=== PATIENT | female | born 1995 | race Caucasian/White ===

== ENCOUNTER 2017-07-28 14:52 | Emergency (ER) ==
[2017-07-28 15:00] VITALS: BP 119/71; TEMP 98.8; BMI 19.0
[2017-07-28] MEDS ORDERED: ZOFRAN 4 MG/2 ML IM STA (15:45)
--- NOTE | 2017-07-28 15:45 | ED.PDOC ---
General ED Provider: Dr. MOHINI MARTNIEZ Chief Complaint: Abdominal Pain Stated Complaint: present with RUQ pain with nausea. has had general abdominal pain for the past 3 months. not related with food no constipation or diarrhea Time Seen by Physician: 15:30 Mode of Arrival: Walk-In Information Source: Patient Exam Limitations: No limitations Nursing and Triage Documentation Reviewed and Agree: Yes Reviewed sepsis parameters & appropriate labs ordered?: Yes System Inflammatory Response Syndrome: Not Applicable Sepsis Protocol: For patient's 13 years and over: Temp is 96.8 and below OR 101 and greater Pulse >90 BPM Resp >20/minute Acutely Altered Mental Status Are patient's symptoms suggestive of a new infection, such as: -Pneumonia -Skin, Soft Tissue -Endocarditis -UTI -Bone, Joint Infection -Implantable Device -Acute Abdominal Infection -Wound Infection -Meningitis -Blood Stream Catheter Infection -Unknown System Inflammatory Response Syndrome: Not Applicable GI Complaint Exam - Abdominal Pain Complaint/Exam Onset: Gradual Duration: 1 days Symptoms Are: Still present Timing: Constant Initial Severity: Moderate Current Severity: Moderate Location of Pain: RUQ Character: Reports: Sharp Aggravating: Reports: None Alleviating: Reports: None Associated Signs and Symptoms: Reports: Nausea Related History: Reports: Similar episode (has had generalized abdominal discomfort for the past 3 months no previous evaluation ) : 1 Para: 0 Hx Total # of Abortions (Spontaneous & Elective): 1 (spontaneous ) AAA Risk Factors: Reports: None Cardiac Risk Factors: Reports: None Ectopic Risk Factors: Reports: None Ovarian Torsion Risk Factors: Reports: None Surgical Obstruction Risk Factors: Reports: None Related Surgical History: Reports: None Differential Diagnoses: Other Review of Systems - Review Of Systems Constitutional: Reports: Loss of appetite, Other (not healthy eating habit ) Eyes: Reports: No symptoms Ears, Nose, Mouth, Throat: Reports: No symptoms Respiratory: Reports: No symptoms Cardiac: Reports: No symptoms GI: Reports: Abdominal pain, Nausea, Poor appetite, Poor fluid intake : Reports: No symptoms Musculoskeletal: Reports: No symptoms Skin: Reports: No symptoms Neurological: Reports: No symptoms Endocrine: Reports: No symptoms Hematologic/Lymphatic: Reports: No symptoms All Other Systems: Reviewed and Negative Past Medical History - Past Medical History Previously Healthy: Yes Endocrine: Reports: None Cardiovascular: Reports: None Respiratory: Reports: None Hematological: Reports: None Gastrointestinal: Reports: None Genitourinary: Reports: None Neuro/Psych: Reports: Anxiety (taking prozac and buspirone), Depression Musculoskeletal: Reports: None Cancer: Reports: None Last Menstrual Period: july 23--sl spotting - Surgical History General Surgical History: Reports: None - Family History Family History: Reports: None - Social History Smoking Status: Never smoker Hx Substance Use: No Alcohol Screening: Occasionally - Immunizations Tetanus Shot up to Date: Yes Physical Exam - Physical Exam Appearance: Well-appearing, Thin (not eating regularly ) Pain Distress: Mild Eyes: MANISH, EOMI, Conjunctiva clear ENT: Ears normal, Nose normal, Oropharynx normal Neck: Supple Respiratory: Airway patent, Breath sounds clear, Breath sounds equal, Respirations nonlabored Cardiovascular: RRR, Pulses normal, No rub, No murmur GI/: Soft, No masses, Bowel sounds normal, No Organomegaly, Tender Musculoskeletal: Normal strength, ROM intact, No edema, No calf tenderness Skin: Warm, Dry, Normal color Neurological: Sensation intact Psychiatric: Affect appropriate (she states that she has seen her PCP for prozac and buspirone ), Mood appropriate Interpretation - Radiology Interpretation Radiology Interpretation By: Radiologist Radiology Results: No acute changes Critical Care Note - Critical Care Note Total Time (mins): 0 Course - Course Orders, Labs, Meds: Lab Review 07/28/17 07/28/17 15:23 15:25 Serum , Qual Negative Urine Color Yellow Urine Clarity Clear Urine pH 7.5 Ur Specific [place] 1.020 Urine Protein Negative Urine Glucose (UA) Negative Urine Ketones Negative Urine Blood Trace-intact Urine Nitrite Negative Urine Bilirubin Negative Urine Urobilinogen 0.2 Ur Leukocyte Esterase Negative Urine Microscopic RBC 0-2 Ur Squamous Epith Cells Not present Orders Category Date Time Status NPO REMINDER: IMAGING ONCE CARE 07/28/17 15:12 Completed AMYLASE Stat LAB 07/28/17 15:23 Received CBC W/ AUTO DIFF Stat LAB 07/28/17 15:23 Received COMPREHENSIVE METABOLIC PANEL Stat LAB 07/28/17 15:23 Received LIPASE Stat LAB 07/28/17 15:23 Received SERUM Stat LAB 07/28/17 15:23 Completed URINALYSIS C & S IF INDICATED Stat LAB 07/28/17 15:25 Completed ULTRASOUND ABDOMEN, RT. UPPER QUAD [U/S ABDOMEN, RT. RADS 07/28/17 15:11 Ordered UPPER QUAD] Stat Vital Signs: Temp Pulse Resp BP Pulse Ox 05/30/18 14:53 98.8 F 61 20 119/71 99 Departure - Departure Time of Disposition: 17:08 Disposition: HOME SELF-CARE Discharge Problem: Abdominal pain Instructions: Abdominal Pain (ED) Condition: Good Pt referred to PMD for follow-up: Yes IPMP verified?: No Additional Instructions: Please call your Family Physician as soon as possible to schedule a follow-up appointment. Allergies/Adverse Reactions: Allergies No Known Allergies Allergy (Unverified 07/28/17 15:01) Home Medications: Ambulatory Orders Buspirone HCl 5 mg PO BID 07/28/17 Fluoxetine HCl [Prozac] 10 mg PO DAILY 07/28/17
--- NOTE | 2017-07-28 16:14 | US ---
EXAM: Abdominal ultrasound limited HISTORY: Abdominal pain COMPARISON: None TECHNIQUE: Sonographic and limited Doppler evaluation of the right upper quadrant was performed. FINDINGS: The liver is normal in echogenicity and measures 9.8 cm. The portal vein is patent. The gallbladder is mildly contracted with no visualized stone. The gallbladder wall measures 0.2 cm in t hickness. Common bile duct is unremarkable and measures 0.4 cm in diameter. The pancreas is unremark able in appearance. The right kidney measures 8.5 x 3.2 x 3.3 cm with cortical thickness of 0.6 cm. IMPRESSION: No acute abnormality to account for abdominal pain.
== END 2017-07-28 17:11 | disposition home or self-care (01) ==
LOC: ED 14:52
DX: R10.11 Right upper quadrant pain (principal); R11.0 Nausea
CPT/HCPCS: 36415; 80053; 81001; 82150; 83690; 84703; 85025; 96372; 99283

== ENCOUNTER 2017-08-30 21:22 | Emergency (ER) | payer OTHER ==
[2017-08-30 21:22] VITALS: BMI 19.0
[2017-08-30 21:37] VITALS: BP 128/90; TEMP 98.8
[2017-08-30] MEDS ORDERED: LACTATED RINGERS 1,000 ML IV STA (22:07)
--- NOTE | 2017-08-30 22:10 | ED.PDOC ---
General ED Provider: Dr. BRIGIDA ANDINO Chief Complaint: Abdominal Pain Stated Complaint: Patient has had abdominal pain off and on for severel months. She was seen a month ago and had an US of abdomen that was negative. She was told to start eating better since she has lost some weight and may have an eating disorder. She states she has been eating better. Time Seen by Physician: 21:50 Mode of Arrival: Walk-In Information Source: Patient Nursing and Triage Documentation Reviewed and Agree: Yes Does patient meet sepsis criteria?: No System Inflammatory Response Syndrome: Not Applicable Sepsis Protocol: For patient's 13 years and over: Temp is 96.8 and below OR 101 and greater Pulse >90 BPM Resp >20/minute Acutely Altered Mental Status Are patient's symptoms suggestive of a new infection, such as: -Pneumonia -Skin, Soft Tissue -Endocarditis -UTI -Bone, Joint Infection -Implantable Device -Acute Abdominal Infection -Wound Infection -Meningitis -Blood Stream Catheter Infection -Unknown GI Complaint Exam - Abdominal Pain Complaint/Exam Onset: Gradual Duration: few weeks worse the last 3 days Symptoms Are: Still present Timing: Constant Initial Severity: Severe Current Severity: Severe Location of Pain: RUQ Character: Reports: Aching, Throbbing Aggravating: Reports: None Alleviating: Reports: Position (putting pressure on it ) Associated Signs and Symptoms: Denies: Diaphoresis, Fever, Cough, Chest pain, Dizziness, Back pain, Constipation, Blood in stool, Dysuria, Urinary frequency, Decreased urine output, Decreased appetite, Vaginal bleeding, Vaginal discharge , Nausea, Vomiting, Diarrhea, Sore throat, Decreased activity AAA Risk Factors: Reports: None Cardiac Risk Factors: Reports: None Ectopic Risk Factors: Reports: None Ovarian Torsion Risk Factors: Reports: None Surgical Obstruction Risk Factors: Reports: None Related Surgical History: Reports: None Patient Rh Status: Unknown Abdominal Findings: Present: Other (tenderness to palpation on the right upper quadrant. ) Differential Diagnoses: Appendicitis, Bowel Obstruction, Gastroenteritis, Irritable Bowel Syndrome, Renal Colic, Ureteral Stone, UTI, Review of Systems - Review Of Systems Constitutional: Reports: No symptoms Eyes: Reports: No symptoms Ears, Nose, Mouth, Throat: Reports: No symptoms Respiratory: Reports: No symptoms Cardiac: Reports: No symptoms GI: Reports: Abdominal pain. Denies: Nausea, Poor appetite, Poor fluid intake, Vomiting : Reports: No symptoms Musculoskeletal: Reports: No symptoms Skin: Reports: No symptoms Neurological: Reports: Anxiety, Depressed, Emotional problems Endocrine: Reports: No symptoms Hematologic/Lymphatic: Reports: No symptoms All Other Systems: Reviewed and Negative Past Medical History - Past Medical History Previously Healthy: Yes Endocrine: Reports: None Cardiovascular: Reports: None Respiratory: Reports: None Hematological: Reports: None Gastrointestinal: Reports: None Genitourinary: Reports: None Neuro/Psych: Reports: Anxiety (taking prozac and buspirone), Depression Musculoskeletal: Reports: None Cancer: Reports: None Last Menstrual Period: 08/23/17 Other Pertinent Past Medical History: Mischarriage - Surgical History General Surgical History: Reports: None - Family History Family History: Reports: None - Social History Smoking Status: Never smoker Hx Substance Use: No Alcohol Screening: Occasionally - Immunizations Tetanus Shot up to Date: Yes Physical Exam - Physical Exam Appearance: Ill-appearing, Thin Pain Distress: Severe Eyes: MANISH, EOMI, Conjunctiva clear Neck: Supple Respiratory: Airway patent, Breath sounds clear, Breath sounds equal, Respirations nonlabored Cardiovascular: RRR, Pulses normal, No rub, No murmur GI/: Soft, Tender Musculoskeletal: Normal strength Skin: Warm Neurological: Alert, Oriented Psychiatric: Anxious Interpretation - Radiology Interpretation Radiology Interpretation By: Radiologist Radiology Results: Negative Exam Interpreted: CT Scan (Abdomen and pelvis. ) Re-Evaluation - Re-Evaluation Time of Re-Evaluation: 00:01 Status: Improved Pain Level: 03/10 Additional Comments: Admitted she has been having problems with the boyfriend. Critical Care Note - Critical Care Note Total Time (mins): 0 Course - Course Hematology/Chemistry: 08/30/17 22:12 08/30/17 22:12 Orders, Labs, Meds: Lab Review 08/30/17 08/30/17 08/30/17 21:39 21:39 22:12 WBC 9.20 RBC 4.23 Hgb 13.2 Hct 36.8 L MCV 87.0 MCH 31.2 H MCHC 35.9 H RDW Coeff of Isis 12.0 Plt Count 257 Immature Gran % (Auto) 0.2 Neut % (Auto) 56.6 Lymph % (Auto) 31.0 [place] % (Auto) 6.5 Eos % (Auto) 5.2 Baso % (Auto) 0.5 Immature Gran # (Auto) 0.0 Neut # (Auto) 5.2 Lymph # (Auto) 2.9 [place] # (Auto) 0.6 Eos # (Auto) 0.5 Baso # (Auto) 0.1 Sodium Potassium Chloride Carbon Dioxide Anion Gap BUN Creatinine Estimated GFR (MDRD) BUN/Creatinine Ratio Glucose Calcium Total Bilirubin AST ALT Alkaline Phosphatase Total Protein Albumin Globulin Albumin/Globulin Ratio Amylase Lipase Urine Color Yellow Urine Clarity Clear Urine pH 5.5 Ur Specific [place] >=1.030 Urine Protein Negative Urine Glucose (UA) Negative Urine Ketones Negative Urine Blood Trace-lysed Urine Nitrite Negative Urine Bilirubin Negative Urine Urobilinogen 0.2 Ur Leukocyte Esterase Negative Urine Microscopic RBC 2-5 Urine Microscopic WBC 0-2 Ur Squamous Epith Cells 0-2 Urine Bacteria 1+ Urine Mucus 1+ Urine Test Negative 08/30/17 22:12 WBC RBC Hgb Hct MCV MCH MCHC RDW Coeff of Isis Plt Count Immature Gran % (Auto) Neut % (Auto) Lymph % (Auto) [place] % (Auto) Eos % (Auto) Baso % (Auto) Immature Gran # (Auto) Neut # (Auto) Lymph # (Auto) [place] # (Auto) Eos # (Auto) Baso # (Auto) Sodium 138 Potassium 3.5 Chloride 108 H Carbon Dioxide 22 Anion Gap 11.5 BUN 10 Creatinine 0.74 Estimated GFR (MDRD) 100.00 BUN/Creatinine Ratio 13.51 Glucose 90 Calcium 9.2 Total Bilirubin 0.7 AST 17 ALT 13 Alkaline Phosphatase 60 Total Protein 7.3 Albumin 3.9 Globulin 3.4 Albumin/Globulin Ratio 1.15 Amylase 78 Lipase 38 Urine Color Urine Clarity Urine pH Ur Specific [place] Urine Protein Urine Glucose (UA) Urine Ketones Urine Blood Urine Nitrite Urine Bilirubin Urine Urobilinogen Ur Leukocyte Esterase Urine Microscopic RBC Urine Microscopic WBC Ur Squamous Epith Cells Urine Bacteria Urine Mucus Urine Test Orders Category Date Time Status NPO REMINDER: IMAGING ONCE CARE 08/30/17 22:15 Completed AMYLASE Stat LAB 08/30/17 22:12 Completed CBC W/ AUTO DIFF Stat LAB 08/30/17 22:12 Completed COMPREHENSIVE METABOLIC PANEL Stat LAB 08/30/17 22:12 Completed LIPASE Stat LAB 08/30/17 22:12 Completed URINALYSIS C & S IF INDICATED Stat LAB 08/30/17 21:39 Completed URINE CULTURE Stat LAB 08/30/17 21:39 Received URINE Stat LAB 08/30/17 21:39 Completed Dicyclomine Inj [Bentyl] MEDS 08/30/17 22:15 Discontinued 20 mg IM ONCE STA Ringers Lactated Solution [Lactated Ringers] 1,000 ml MEDS 08/30/17 22:[address] ABDOMEN/PELVIS W CONTRAST Stat RADS 08/30/17 22:14 Completed Medications Discontinued Medications Generic Name Dose Route Start Last Admin Trade Name Freq PRN Reason Stop Dose Admin Dicyclomine HCl 20 mg 08/30/17 22:15 08/30/17 22:23 Bentyl IM 08/30/17 22:16 20 mg ONCE STA Administration Lactated Ringer's 1,000 mls @ 1,000 mls/hr 08/30/17 22:07 08/30/17 22:17 Lactated Ringers IV 08/30/17 23:06 1,000 mls/hr BOLUS STA Administration Vital Signs: Temp Pulse Resp BP Pulse Ox 08/30/17 21:31 98.8 F 72 20 128/90 97 Departure - Departure Time of Disposition: 00:16 Disposition: HOME SELF-CARE Discharge Problem: Abdominal pain Instructions: Chronic Abdominal Pain (ED) Condition: Stable Pt referred to PMD for follow-up: Yes IPMP verified?: No Additional Instructions: Take medications as prescribed Follow up with PCP in 3-5 days to have GI referral. Push fluids Continue to eat Three meals a day. Prescriptions: Dicyclomine HCl [Bentyl] 10 mg PO TID PRN #20 capsule PRN Reason: Abdominal Pain Allergies/Adverse Reactions: Allergies No Known Allergies Allergy (Verified 08/30/17 21:37) Home Medications: Ambulatory Orders Dicyclomine HCl [Bentyl] 10 mg PO TID PRN #20 capsule 08/31/17 Disposition Discussed With: Patient
[2017-08-30] MEDS ORDERED: BENTYL IM STA (22:15)
--- NOTE | 2017-08-30 23:51 | CT ---
EXAM: CT scan abdomen pelvis with contrast HISTORY: Right upper quadrant pain COMPARISON: None. FINDINGS: Contiguous axial images were obtained through the abdomen pelvis following uneventful admi nistration intravenous contrast utilizing 3-mm collimation. Sagittal and coronal reconstructions wer e imaged and reviewed.. The visualized lung bases are clear. Gallbladder is fluid filled without ch olelithiasis. The liver, pancreas, spleen and adrenal glands have normal enhanced CT appearance. Th e kidneys excrete contrast in a normal fashion bilaterally... The abdominal aorta is normal in cours e and caliber. There is partial visualization of the appendix which appears normal. Free fluid is s een in the dependent pelvis. The bladder is unremarkable.. Bone windows reveals no evidence of lyti c or blastic lesions. IMPRESSION: Normal-appearing visceral organs. Free fluid is seen in the dependent pelvis. No acute intra-abdominal findings.1
== END 2017-08-31 00:22 | disposition home or self-care (01) ==
LOC: ED 21:22
DX: R10.11 Right upper quadrant pain (principal); G89.29 Other chronic pain
CPT/HCPCS: 36415; 80053; 81001; 81025; 82150; 83690; 85025; 87086; 96360; 96372; 99284

== ENCOUNTER 2017-10-11 12:44 | Emergency (ER) | payer OTHER ==
[2017-10-11 12:52] VITALS: BP 113/80; TEMP 98.7; BMI 19.1
--- NOTE | 2017-10-11 13:23 | ED.PDOC ---
General ED Provider: Dr. YESIKA DE Chief Complaint: Rash Stated Complaint: skin lesion-rt mandibular region with diffuse swelling and tenderness. 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 Time Seen by Physician: 12:55 Mode of Arrival: Walk-In Information Source: Patient Nursing and Triage Documentation Reviewed and Agree: Yes Does patient meet sepsis criteria?: No System Inflammatory Response Syndrome: Not Applicable Sepsis Protocol: For patient's 13 years and over: Temp is 96.8 and below OR 101 and greater Pulse >90 BPM Resp >20/minute Acutely Altered Mental Status Are patient's symptoms suggestive of a new infection, such as: -Pneumonia -Skin, Soft Tissue -Endocarditis -UTI -Bone, Joint Infection -Implantable Device -Acute Abdominal Infection -Wound Infection -Meningitis -Blood Stream Catheter Infection -Unknown Review of Systems - Review Of Systems Constitutional: Reports: No symptoms Eyes: Reports: No symptoms Ears, Nose, Mouth, Throat: Reports: No symptoms, Mouth pain, Throat pain ( anterolat) Respiratory: Reports: No symptoms Cardiac: Reports: No symptoms GI: Reports: No symptoms : Reports: No symptoms Musculoskeletal: Reports: No symptoms Skin: Reports: Change in color (Rt Mandibular erythrema) Endocrine: Reports: No symptoms Hematologic/Lymphatic: Reports: No symptoms All Other Systems: Reviewed and Negative Past Medical History - Past Medical History Previously Healthy: Yes Endocrine: Reports: None Cardiovascular: Reports: None Respiratory: Reports: None Hematological: Reports: None Gastrointestinal: Reports: None Genitourinary: Reports: None Neuro/Psych: Reports: Anxiety (taking prozac and buspirone), Depression Musculoskeletal: Reports: None Cancer: Reports: None Last Menstrual Period: AUGUST 21 Other Pertinent Past Medical History: Mischarriage - Surgical History General Surgical History: Reports: None - Family History Family History: Reports: None - Social History Smoking Status: Never smoker Hx Substance Use: No Alcohol Screening: None - Immunizations Tetanus Shot up to Date: Yes Physical Exam - Physical Exam Appearance: Well-appearing, No pain distress, Well-nourished Ill-appearing: Mild Pain Distress: Moderate Eyes: MANISH, EOMI, Conjunctiva clear ENT: Ears normal, Nose normal, Oropharynx normal Neck: Supple (Tenderness Rt Proximal mandibular region /central area of induration with punctate red area-no drainage) Respiratory: Airway patent, Breath sounds clear, Breath sounds equal, Respirations nonlabored Cardiovascular: RRR, Pulses normal, No rub, No murmur GI/: Soft, Nontender, No masses, Bowel sounds normal, No Organomegaly Musculoskeletal: Normal strength, ROM intact, No edema, No calf tenderness Skin: Warm, Dry, Normal color Neurological: Sensation intact, Motor intact, Reflexes intact, Cranial nerves intact, Alert, Oriented Psychiatric: Affect appropriate, Mood appropriate Critical Care Note - Critical Care Note Total Time (mins): 0 Course - Course Hematology/Chemistry: 10/11/17 13:28 10/11/17 13:28 Orders, Labs, Meds: Lab Review 10/11/17 10/11/17 10/11/17 13:28 13:28 13:28 WBC 8.26 RBC 5.11 Hgb 15.8 Hct 44.8 MCV 87.7 MCH 30.9 MCHC 35.3 RDW Coeff of Isis 11.6 Plt Count 267 Immature Gran % (Auto) 0.2 Neut % (Auto) 65.0 Lymph % (Auto) 24.8 [place] % (Auto) 7.5 Eos % (Auto) 1.9 Baso % (Auto) 0.6 Immature Gran # (Auto) 0.0 Neut # (Auto) 5.4 Lymph # (Auto) 2.1 [place] # (Auto) 0.6 Eos # (Auto) 0.2 Baso # (Auto) 0.1 ESR 2 Sodium 139 Potassium 3.8 Chloride 105 Carbon Dioxide 26 Anion Gap 11.8 BUN 8 Creatinine 0.82 Estimated GFR (MDRD) 89.00 BUN/Creatinine Ratio 9.75 Glucose 78 Calcium 9.7 Total Bilirubin 0.8 AST 19 ALT 14 Alkaline Phosphatase 72 Total Protein 8.1 Albumin 4.2 Globulin 3.9 Albumin/Globulin Ratio 1.08 Urine Color Yellow Urine Clarity Clear Urine pH 6.0 Ur Specific [place] 1.025 Urine Protein 1+ Urine Glucose (UA) Negative Urine Ketones Negative Urine Blood 2+ Urine Nitrite Negative Urine Bilirubin Negative Urine Urobilinogen 1.0 Ur Leukocyte Esterase Negative Urine Microscopic RBC 20-30 Urine Microscopic WBC 0-2 Ur Squamous Epith Cells 10-20 Urine Test 10/11/17 13:28 WBC RBC Hgb Hct MCV MCH MCHC RDW Coeff of Isis Plt Count Immature Gran % (Auto) Neut % (Auto) Lymph % (Auto) [place] % (Auto) Eos % (Auto) Baso % (Auto) Immature Gran # (Auto) Neut # (Auto) Lymph # (Auto) [place] # (Auto) Eos # (Auto) Baso # (Auto) ESR Sodium Potassium Chloride Carbon Dioxide Anion Gap BUN Creatinine Estimated GFR (MDRD) BUN/Creatinine Ratio Glucose Calcium Total Bilirubin AST ALT Alkaline Phosphatase Total Protein Albumin Globulin Albumin/Globulin Ratio Urine Color Urine Clarity Urine pH Ur Specific [place] Urine Protein Urine Glucose (UA) Urine Ketones Urine Blood Urine Nitrite Urine Bilirubin Urine Urobilinogen Ur Leukocyte Esterase Urine Microscopic RBC Urine Microscopic WBC Ur Squamous Epith Cells Urine Test Negative Orders Category Date Time Status NPO REMINDER: IMAGING ONCE CARE 10/11/17 13:21 Completed IV [ED IV/MEDIPORT/POWERPORT] .ONCE EMERGENCY 10/11/17 13:20 Active BLOOD CULTURE (ED ONLY) Stat LAB 10/11/17 13:28 Received CBC W/ AUTO DIFF Stat LAB 10/11/17 13:28 Completed CMP [COMPREHENSIVE METABOLIC PANEL] Stat LAB 10/11/17 13:28 Completed ESR Stat LAB 10/11/17 13:28 Completed UA [URINALYSIS C & S IF INDICATED] Stat LAB 10/11/17 13:28 Completed URINE Stat LAB 10/11/17 13:28 Completed 0.9 % Sodium Chloride [Saline Flush] MEDS 10/11/17 13:20 Active 1 syr IVF PRN PRN Cetirizine HCl [Zyrtec] MEDS 10/11/17 15:18 Discontinued 10 mg PO ONCE STA Dexamethasone 4 mg/ml Inj [Decadron 4 mg/ml Sdv] MEDS 10/11/17 15:19 Discontinued 4 mg IVP ONCE STA Diphenhydramine Inj [Benadryl] MEDS 10/11/17 15:18 Discontinued 25 mg IVP ONCE STA Famotidine Inj [Pepcid] MEDS 10/11/17 15:19 Discontinued 20 mg IVP ONCE STA Vancomycin HCl [Vancomycin] 1 gm MEDS 10/11/17 13:52 Discontinued 0.9 % Sodium Chloride [Sodium Chloride] [address] SOFT TISSUE NECK W/CONTRAST Stat RADS 10/11/17 13:20 Completed Medications Generic Name Dose Route Start Last Admin Trade Name Freq PRN Reason Stop Dose Admin Sodium Chloride 1 syr 10/11/17 13:20 10/11/17 15:32 Saline Flush IVF 1 syr PRN PRN Administration To flush IV Discontinued Medications Generic Name Dose Route Start Last Admin Trade Name [place] PRN Reason Stop Dose Admin Cetirizine HCl 10 mg 10/11/17 15:18 10/11/17 15:32 Zyrtec PO 10/11/17 15:19 10 mg ONCE STA Administration Dexamethasone Sodium Phosphate 4 mg 10/11/17 15:19 10/11/17 15:28 Decadron 4 Mg/Ml Sdv IVP 10/11/17 15:20 4 mg ONCE STA Administration Diphenhydramine HCl 25 mg 10/11/17 15:18 10/11/17 15:27 Benadryl IVP 10/11/17 15:19 25 mg ONCE STA Administration Famotidine 20 mg 10/11/17 15:19 10/11/17 15:29 Pepcid IVP 10/11/17 15:20 20 mg ONCE STA Administration Vancomycin HCl 1 gm/ Sodium 250 mls @ 250 mls/hr 10/11/17 13:52 10/11/17 14: 08 Chloride IV 10/11/17 14:51 250 mls/hr ONCE STA Administration Vital Signs: Temp Pulse Resp BP Pulse Ox 10/11/17 12:47 98.7 F 78 16 113/80 99 Departure - Departure Time of Disposition: 17:00 Disposition: HOME SELF-CARE Discharge Problem: Facial cellulitis, Vancomycin adverse reaction Instructions: Cellulitis (ED), Adverse Drug Reaction (ED) Condition: Good Pt referred to PMD for follow-up: Yes IPMP verified?: No Additional Instructions: Take prescribe antibiotics as directed Take Benadryl 25 mg every 6 hours for next 24 hrs then prn Take Zyrtec 1 daily as needed for itching Local wound care to Rt chin facial lesion Allergies/Adverse Reactions: Allergies No Known Allergies Allergy (Verified 10/11/17 12:45) Home Medications: Ambulatory Orders Sulfamethoxazole/Trimethoprim [Bactrim Ds Tablet] 1 each PO BID #20 tablet 10/11 Disposition Discussed With: Patient, Family Additional Information: After reaction treated, erythrema surrounding mandibular region less tender and less erythrematous
[2017-10-11] MEDS ORDERED: VANCOMYCIN 1 GM in SODIUM CHLORIDE 250 ML IV STA (13:52)
--- NOTE | 2017-10-11 15:11 | CT ---
EXAM: CT of the soft tissue neck with contrast History: Right neck pain and swelling. Technique: Multiplanar CT images through the soft tissue neck were obtained following administration of IV contrast. Findings: The visualized upper lungs are free of consolidation. No acute osseous abnormalities. No prevertebral soft tissue swelling. The visualized paranasal sinuses and mastoid air cells are clear in general. Orbits are intact. Visualized intracranial contents demonstrate no acute findings. No parotid masses and no parotid inflammation. Submandibular glands are not inflamed. No peritonsilla r inflammation. Prominent but not pathologically enlarged bilateral neck lymph nodes. No discrete t hyroid nodule identified by CT. There is mild subcutaneous inflammation in the region of interest ad jacent to the right mandible. Epiglottis is not thickened. Impression: 1. Cellulitis adjacent to the right mandible. No abscess. 2. No other significant findings.
[2017-10-11] MEDS ORDERED: BENADRYL IVP STA (15:18)
[2017-10-11] MEDS ORDERED: ZYRTEC PO STA (15:18)
[2017-10-11] MEDS ORDERED: DECADRON 4 MG/ML SDV IVP STA (15:19)
[2017-10-11] MEDS ORDERED: PEPCID IVP STA (15:19)
== END 2017-10-11 17:42 | disposition home or self-care (01) ==
LOC: ED 12:44
DX: L03.211 Cellulitis of face (principal); T36.8X5A Adverse effect of other systemic antibiotics, initial encounter
CPT/HCPCS: 36415; 80053; 81001; 81025; 85025; 85651; 87040; 96365; 96375; 99283

== ENCOUNTER 2017-10-12 14:59 | Emergency (ER) | payer OTHER ==
[2017-10-12 15:05] VITALS: BP 129/81; TEMP 99.2; BMI 19.0
--- NOTE | 2017-10-12 15:56 | ED.PDOC ---
General ED Provider: Dr. YESIKA DE Chief Complaint: Cellulitis Stated Complaint: Follow up swelling and abscess Rt Facial and mandibular region. Was treated here yesterday for progressive erythrema and swelling to area at Rt mid mandibular region -extending to surface to mid mandibular and anterior neck region .Area first noted preceding night and pt worked overnigh at [employer] [facility] [employer]. Upon awakened it had worsened and was 2-3 times the size. Had multiple acne sites on face which she stated she likes to pick at and infact she believed the central lesion by the red indurated region in question was initially an acne lesion. Treated with IV Vancomycin yesterday due to concern over MRSA/staph infection. 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 Admits that overall it feels slightly better however concerned over sensation of itching and swelling to nasal region. Time Seen by Physician: 15:30 Mode of Arrival: Walk-In Information Source: Patient Exam Limitations: No limitations Seen Within Last 72 Hours for Same Complaint By: ED Nursing and Triage Documentation Reviewed and Agree: Yes Does patient meet sepsis criteria?: No System Inflammatory Response Syndrome: Not Applicable Sepsis Protocol: For patient's 13 years and over: Temp is 96.8 and below OR 101 and greater Pulse >90 BPM Resp >20/minute Acutely Altered Mental Status Are patient's symptoms suggestive of a new infection, such as: -Pneumonia -Skin, Soft Tissue -Endocarditis -UTI -Bone, Joint Infection -Implantable Device -Acute Abdominal Infection -Wound Infection -Meningitis -Blood Stream Catheter Infection -Unknown Skin Complaint Exam - Skin/Soft Tissue Complaint/Exam Symptoms Are: Still present Timing: Intermittent Initial Severity: Severe Current Severity: Moderate Character: Reports: Redness, Swelling, Painful Aggravating: Reports: None Alleviating: Reports: None Related History: Reports: Similar episode Skin Findings: Present: Erythema, Lymphadenopathy Joint Tenderness Present: No Differential Diagnoses: Cellulitis Review of Systems - Review Of Systems Constitutional: Reports: No symptoms Eyes: Reports: No symptoms Ears, Nose, Mouth, Throat: Reports: No symptoms Respiratory: Reports: No symptoms Cardiac: Reports: No symptoms GI: Reports: No symptoms : Reports: No symptoms Musculoskeletal: Reports: No symptoms Skin: Reports: No symptoms Neurological: Reports: No symptoms Endocrine: Reports: No symptoms Hematologic/Lymphatic: Reports: No symptoms All Other Systems: Reviewed and Negative Past Medical History - Past Medical History Previously Healthy: Yes Endocrine: Reports: None Cardiovascular: Reports: None Respiratory: Reports: None Hematological: Reports: None Gastrointestinal: Reports: None Genitourinary: Reports: None Neuro/Psych: Reports: Anxiety (taking prozac and buspirone), Depression Musculoskeletal: Reports: None Cancer: Reports: None Last Menstrual Period: august 21 Other Pertinent Past Medical History: Mischarriage - Surgical History General Surgical History: Reports: None - Family History Family History: Reports: None - Social History Smoking Status: Never smoker Hx Substance Use: No Alcohol Screening: None Physical Exam - Physical Exam Appearance: Well-appearing, Well-nourished, Thin Ill-appearing: Mild Pain Distress: Mild Eyes: MANISH, EOMI, Conjunctiva clear ENT: Ears normal, Nose normal Neck: Supple Respiratory: Airway patent, Breath sounds clear, Breath sounds equal Cardiovascular: RRR, Pulses normal, No rub GI/: Soft, Nontender Musculoskeletal: Normal strength, ROM intact, No edema Skin: Warm Neurological: Sensation intact, Motor intact, Alert, Oriented Psychiatric: Affect appropriate, Mood appropriate Interpretation - Radiology Interpretation Radiology Interpretation By: Radiologist Exam Interpreted: CT Scan (minor inflamatory stranding in subcutaneous region of rt mandible -no localized abscess) Critical Care Note - Critical Care Note Total Time (mins): 0 Course - Course Hematology/Chemistry: 10/12/17 16:08 10/12/17 16:08 Orders, Labs, Meds: Lab Review 10/12/17 10/12/17 10/12/17 16:08 16:08 16:08 WBC 11.10 H RBC 4.41 Hgb 13.5 Hct 38.2 D MCV 86.6 MCH 30.6 MCHC 35.3 RDW Coeff of Isis 11.6 Plt Count 250 Immature Gran % (Auto) 0.3 Neut % (Auto) 60.8 Lymph % (Auto) 29.1 [place] % (Auto) 7.7 Eos % (Auto) 1.6 Baso % (Auto) 0.5 Immature Gran # (Auto) 0.0 Neut # (Auto) 6.8 Lymph # (Auto) 3.2 [place] # (Auto) 0.9 Eos # (Auto) 0.2 Baso # (Auto) 0.1 ESR 2 Sodium 141 Potassium 3.0 L Chloride 107 Carbon Dioxide 26 Anion Gap 11.0 BUN 9 Creatinine 0.85 Estimated GFR (MDRD) 85.00 BUN/Creatinine Ratio 10.58 Glucose 95 Calcium 9.2 Total Bilirubin 0.5 AST 16 ALT 14 Alkaline Phosphatase 62 Total Protein 7.0 Albumin 3.7 Globulin 3.3 Albumin/Globulin Ratio 1.12 Urine Test 10/12/17 16:25 WBC RBC Hgb Hct MCV MCH MCHC RDW Coeff of Isis Plt Count Immature Gran % (Auto) Neut % (Auto) Lymph % (Auto) [place] % (Auto) Eos % (Auto) Baso % (Auto) Immature Gran # (Auto) Neut # (Auto) Lymph # (Auto) [place] # (Auto) Eos # (Auto) Baso # (Auto) ESR Sodium Potassium Chloride Carbon Dioxide Anion Gap BUN Creatinine Estimated GFR (MDRD) BUN/Creatinine Ratio Glucose Calcium Total Bilirubin AST ALT Alkaline Phosphatase Total Protein Albumin Globulin Albumin/Globulin Ratio Urine Test Negative Orders Category Date Time Status CBC W/ AUTO DIFF Stat LAB 10/12/17 16:08 Completed CMP [COMPREHENSIVE METABOLIC PANEL] Stat LAB 10/12/17 16:08 Completed ESR Stat LAB 10/12/17 16:08 Completed URINE Stat LAB 10/12/17 16:25 Completed Diphenhydramine HCl [Benadryl] MEDS 10/12/17 16:01 Discontinued 25 mg PO ONCE STA Potassium Chloride [K-Dur] MEDS 10/12/17 17:36 Stat 20 meq PO ONCE STA [address] MAXILLOFACIAL W/O CONTRAST Stat RADS 10/12/17 15:59 Completed Medications Discontinued Medications Generic Name Dose Route Start Last Admin Trade Name Josueq PRN Reason Stop Dose Admin Diphenhydramine HCl 25 mg 10/12/17 16:01 10/12/17 16:12 Benadryl PO 10/12/17 16:02 25 mg ONCE STA Administration Potassium Chloride 20 meq 10/12/17 17:36 K-Dur PO 10/12/17 17:37 ONCE STA Vital Signs: Temp Pulse Resp BP Pulse Ox 10/12/17 14:59 99.2 F 72 20 129/81 99 Departure - Departure Time of Disposition: 17:30 Disposition: HOME SELF-CARE Discharge Problem: Cellulitis Instructions: Cellulitis (ED) Condition: Good Pt referred to PMD for follow-up: Yes (1week) IPMP verified?: Yes (NO entries) Additional Instructions: Remain on Benadryl 25 mg 3-4 times daily for relief of facial and mandibular discomfort/itching; Bactrim DS until all are taken; Obtain Prednisone and take as directed See PCP in 1 week of if worsens or develops organizing abscess seek care earlier Prescriptions: Prednisone 10 mg PO DIRECTED #12 tablet Allergies/Adverse Reactions: Allergies vancomycin Adverse Reaction (Verified 10/12/17 15:07) Home Medications: Ambulatory Orders Sulfamethoxazole/Trimethoprim [Bactrim Ds Tablet] 1 each PO BID #20 tablet 10/11 Prednisone 10 mg PO DIRECTED #12 tablet 10/12/17 Transfer Form Completed: Yes Disposition Discussed With: Patient
[2017-10-12] MEDS ORDERED: BENADRYL PO STA (16:01)
--- NOTE | 2017-10-12 17:27 | CT ---
Exam: CT maxillofacial without contrast History: Mandibular swelling Technique: [address] maxillofacial with reformations FINDINGS: Paranasal sinuses are clear. Orbital fat is clear. Zygoma and nasal bones are intact. Th e mandible is intact. Mastoid air cells and middle ears are clear. Minor subcutaneous fat infiltrat ion of the right face at the level of the mandible. No organizing inflammatory mass or collection is seen. No suspicious dental lucencies are seen in the mandible. There is a apical lucency associated with the right lateral incisor of the maxilla without adjacent inflammation or swelling. The subman dibular and parotid glands appear normal. Impression: 1. Minor inflammatory stranding in the subcutaneous fat of the right face at the level of the mandib le. No organizing epicenter or offending site is identified.
[2017-10-12] MEDS ORDERED: K-DUR PO STA (17:36)
== END 2017-10-12 17:55 | disposition home or self-care (01) ==
LOC: ED 14:59
DX: L03.211 Cellulitis of face (principal)
CPT/HCPCS: 36415; 80053; 81025; 85025; 85651; 99283

== ENCOUNTER 2018-11-08 11:19 | Outpatient (CLI) | END 2018-11-08 11:20 | disposition home or self-care (01) | LOC: LAB 11:19 | PROVIDERS: ATTEND Nurse Practitioner Family | DX: R80.9 Proteinuria, unspecified (principal) | CPT/HCPCS: 81001; 87086 ==